=== PATIENT | female | born 1960 | race Caucasian/White ===

== ENCOUNTER 2016-05-22 14:02 | Emergency (ER) | payer OTHER ==
[2015-03-02 11:05] VITALS: BMI 22.3
[~2016-05-22 14:02] MED LIST: BACTRIM DS TABL1 TAB PO; CLEOCIN HCL150 MG PO; CLEOCIN HCL300 MG PO; EPOGEN3000 U/ML SC; HYDROCODONE-APA1 TAB PO; NEUPOGEN300 MCG/ML SC; ONCOLOGY MOUTHWA5 ML PO; OXYCONTIN10 MG PO; VALTREX500 MG PO; ZOFRAN ODT4 MG/UDTAB PO
== END 2016-05-22 18:54 | disposition home or self-care (01) ==
LOC: D.ER 14:02
DX: K04.7 Periapical abscess without sinus (principal); R59.1 Generalized enlarged lymph nodes; R51 Headache; F17.200 Nicotine dependence, unspecified, uncomplicated; C95.90 Leukemia, unspecified not having achieved remission

== ENCOUNTER 2016-06-16 20:21 | Emergency (ER) | payer OTHER ==
[2015-03-02 11:05] VITALS: BMI 22.3
[2016-06-16 23:29] LABS: HEMATOCRIT 33.7 % (36.0-48.0); HEMOGLOBIN 11.4 g/dL (12-16); MCH 31.5 pg (26.0-34.0); MCHC 33.8 g/dL (31.0-37.0); MCV 93.1 fL (80.0-100.0); MEAN PLATELET VOLUME 9.8 fL (7.4-10.4); PLATELET COUNT 153 10x3/uL (130-400); RBC 3.62 10x6/uL (4.00-5.40); RDW 15.2 % (11.5-14.5); WBC 2.3 10x3/uL (4.8-10.8)
[2016-06-16 23:41] LABS: ALKALINE PHOSPHATASE 96 U/L (46-116); ALT (SGPT) 33 U/L (10-68); CALC OSMOLALITY 287 mosm/kg (275-300); CALCIUM 8.9 mg/dL (8.5-10.1); CARBON DIOXIDE 26.2 mmol/L (21.0-32.0); CHLORIDE - SERUM 109 mmol/L (98-107); CREATININE - SERUM 0.8 mg/dL (0.6-1.3); GLUCOSE 104 mg/dL (74-106); POTASSIUM - SERUM 3.9 mmol/L (3.5-5.1); PROTEIN - SERUM 8.3 g/dL (6.4-8.2); SODIUM 143 mmol/L (136-145); UREA NITROGEN 20 mg/dL (7-18); eGFR NON AFRICAN AMERICAN 79 mL/min (90-120)
[2016-06-17 00:04] LABS: EOSINOPHILS 6 % (0-7); LYMPHOCYTES 70 % (15-50); MONOCYTES 6 % (2-11); NEUTROPHILS 14 % (40-80); PLATELET ESTIMATE NORMAL; ROULEAUX 1+
== END 2016-06-17 01:26 | disposition home or self-care (01) ==
LOC: D.ER 20:21
PROVIDERS: Nurse Practitioner Acute Care
DX: L03.313 Cellulitis of chest wall (principal)

== ENCOUNTER 2016-09-28 20:54 | Emergency (ER) | payer OTHER ==
[2015-03-02 11:05] VITALS: BMI 22.3
[2016-09-28 22:18] LABS: APPEARANCE HAZY (CLEAR); BILIRUBIN NEGATIVE (NEGATIVE); COLOR YELLOW (YELLOW); GLUCOSE NEGATIVE (NEGATIVE); KETONE NEGATIVE (NEGATIVE); LEUKOCYTE ESTERASE TRACE (NEGATIVE); NITRITE NEGATIVE (NEGATIVE); PROTEIN NEGATIVE (NEGATIVE); SPECIFIC GRAVITY 1.015 (1.005-1.020); UROBILINOGEN NORMAL (NORMAL)
[2016-09-28 22:25] LABS: UDS - AMPHET NEGATIVE QUAL (NEGATIVE); UDS - BARB NEGATIVE QUAL (NEGATIVE); UDS - BENZO POSITIVE QUAL (NEGATIVE); UDS - COCAINE POSITIVE QUAL (NEGATIVE); UDS - METH NEGATIVE QUAL (NEGATIVE); UDS - OPIATE NEGATIVE QUAL (NEGATIVE); UDS - PCP NEGATIVE QUAL (NEGATIVE); UDS - THC NEGATIVE QUAL (NEGATIVE)
[2016-09-28 22:26] LABS: BACTERIA FEW /hpf (NONE SEEN); EPITHELIAL CELLS 0-5 /hpf (0-5); RED CELLS - URINE 25-50 /hpf (0-5)
[2016-09-28 22:40] LABS: BASOPHILS 0.6 % (0-2); EOSINOPHILS 8.1 % (0-7); HEMATOCRIT 35.2 % (36.0-48.0); HEMOGLOBIN 11.9 g/dL (12-16); IMMATURE GRANULOCYTES 0.3 % (0-5); LYMPHOCYTES 53.6 % (15-50); MCH 32.7 pg (26.0-34.0); MCHC 33.8 g/dL (31.0-37.0); MCV 96.7 fL (80.0-100.0); MEAN PLATELET VOLUME 9.9 fL (7.4-10.4); MONOCYTES 10.3 % (2-11); NEUTROPHILS 27.1 % (40-80); PLATELET COUNT 123 10x3/uL (130-400); RBC 3.64 10x6/uL (4.00-5.40); RDW 13.4 % (11.5-14.5); WBC 3.2 10x3/uL (4.8-10.8)
[2016-09-28 22:53] LABS: ALBUMIN 2.9 g/dL (3.4-5.0); BILIRUBIN - TOTAL 0.13 mg/dL (0.2-1.3); CALCIUM 8.4 mg/dL (8.5-10.1); CARBON DIOXIDE 27.2 mmol/L (21.0-32.0); CREATININE - SERUM 0.9 mg/dL (0.6-1.3); POTASSIUM - SERUM 4.2 mmol/L (3.5-5.1); PROTEIN - SERUM 7.3 g/dL (6.4-8.2)
== END 2016-09-29 00:13 | disposition home or self-care (01) ==
LOC: D.ER 20:54
PROVIDERS: Family Medicine
DX: L02.511 Cutaneous abscess of right hand (principal); N39.0 Urinary tract infection, site not specified; A59.9 Trichomoniasis, unspecified; Z85.6 Personal history of leukemia; R50.9 Fever, unspecified; R53.83 Other fatigue; F17.200 Nicotine dependence, unspecified, uncomplicated

== ENCOUNTER 2016-11-12 01:35 | Emergency (ER) | payer OTHER ==
[2015-03-02 11:05] VITALS: BMI 22.3
[2016-11-12 02:41] LABS: HEMATOCRIT 44.8 % (36.0-48.0); HEMOGLOBIN 15.2 g/dL (12-16); MCH 34.1 pg (26.0-34.0); MCHC 33.9 g/dL (31.0-37.0); MCV 100.4 fL (80.0-100.0); MEAN PLATELET VOLUME 10.3 fL (7.4-10.4); PLATELET COUNT 135 10x3/uL (130-400); RBC 4.46 10x6/uL (4.00-5.40); RDW 14.1 % (11.5-14.5); WBC 3.3 10x3/uL (4.8-10.8)
[2016-11-12 03:12] LABS: EOSINOPHILS 1 % (0-7); LYMPHOCYTES 67 % (15-50); MONOCYTES 1 % (2-11); NEUTROPHILS 28 % (40-80); PLATELET ESTIMATE DECREASED
[2016-11-12 03:32] LABS: ALBUMIN 3.9 g/dL (3.4-5.0); ALKALINE PHOSPHATASE 111 U/L (46-116); ALT (SGPT) 70 U/L (10-68); AMYLASE - SERUM 38 U/L (25-115); BILIRUBIN - TOTAL 0.43 mg/dL (0.2-1.3); CALC OSMOLALITY 281 mosm/kg (275-300); CALCIUM 8.8 mg/dL (8.5-10.1); CARBON DIOXIDE 18.8 mmol/L (21.0-32.0); CHLORIDE - SERUM 104 mmol/L (98-107); CREATININE - SERUM 0.6 mg/dL (0.6-1.3); GLUCOSE 97 mg/dL (74-106); LIPASE 114 U/L (73-393); PROTEIN - SERUM 8.6 g/dL (6.4-8.2); SODIUM 138 mmol/L (136-145); UREA NITROGEN 28 mg/dL (7-18); eGFR NON AFRICAN AMERICAN > 90 mL/min (90-120)
[2016-11-12 03:36] LABS: POTASSIUM - SERUM 4.3 mmol/L (3.5-5.1); TROPONIN-I < 0.017 ng/mL (0.000-0.060)
== END 2016-11-12 10:00 | disposition home or self-care (01) ==
LOC: D.ER 01:35
PROVIDERS: Family Medicine
DX: S20.219A Contusion of unspecified front wall of thorax, initial encounter (principal); X58.XXXA Exposure to other specified factors, initial encounter; Y93.89 Activity, other specified; Y92.89 Other specified places as the place of occurrence of the external cause; F10.10 Alcohol abuse, uncomplicated

== ENCOUNTER 2017-04-13 16:17 | Emergency (ER) | payer OTHER ==
[2015-03-02 11:05] VITALS: BMI 22.3
== END 2017-04-13 18:45 | disposition home or self-care (01) ==
LOC: D.ER 16:17
DX: S80.212A Abrasion, left knee, initial encounter (principal); W19.XXXA Unspecified fall, initial encounter; Y93.89 Activity, other specified; Y92.014 Private driveway to single-family (private) house as the place of occurrence of the external cause; S80.02XA Contusion of left knee, initial encounter; S00.83XA Contusion of other part of head, initial encounter; M79.1 Myalgia

== ENCOUNTER 2017-08-03 11:07 | Inpatient (IN) | payer OTHER ==
[~2017-08-03] VITALS: Ht 147.3 cm; Wt 56.8 kg
[2017-08-03 12:38] LABS: BASOPHILS 0.5 % (0-2); HEMATOCRIT 39.9 % (36.0-48.0); HEMOGLOBIN 13.9 g/dL (12-16); IMMATURE GRANULOCYTES 0.3 % (0-5); MCH 32.6 pg (26.0-34.0); MCHC 34.8 g/dL (31.0-37.0); MCV 93.7 fL (80.0-100.0); MEAN PLATELET VOLUME 10.4 fL (7.4-10.4); MONOCYTES 18.1 % (2-11); NEUTROPHILS 25.1 % (40-80); PLATELET COUNT 151 10x3/uL (130-400); RBC 4.26 10x6/uL (4.00-5.40); RDW 14.6 % (11.5-14.5)
[2017-08-03 12:56] LABS: ALBUMIN 3.8 g/dL (3.4-5.0); ANION GAP 12.7 mmol/L (8-16); BILIRUBIN - TOTAL 0.2 mg/dL (0.2-1.3); CALCIUM 9.1 mg/dL (8.5-10.1); CARBON DIOXIDE 24.1 mmol/L (21.0-32.0); CREATININE - SERUM 0.9 mg/dL (0.6-1.3); POTASSIUM - SERUM 3.8 mmol/L (3.5-5.1); PROTEIN - SERUM 9.1 g/dL (6.4-8.2); URIC ACID 2.1 mg/dL (2.6-7.2)
[2017-08-03 14:04] LABS: UDS - AMPHET NEGATIVE QUAL (NEGATIVE); UDS - BARB NEGATIVE QUAL (NEGATIVE); UDS - BENZO NEGATIVE QUAL (NEGATIVE); UDS - COCAINE POSITIVE QUAL (NEGATIVE); UDS - OPIATE POSITIVE QUAL (NEGATIVE); UDS - PCP NEGATIVE QUAL (NEGATIVE); UDS - THC NEGATIVE QUAL (NEGATIVE)
[2017-08-03 15:13] VITALS: BP 144/88; BMI 26.1
[2017-08-03 16:03] VITALS: BP 142/79
[2017-08-03 21:46] VITALS: BP 152/41
[2017-08-04 00:38] VITALS: BP 125/70
[2017-08-04 04:35] VITALS: BP 123/60
[2017-08-04 06:33] LABS: CALC OSMOLALITY 275 mosm/kg (275-300); CALCIUM 8.3 mg/dL (8.5-10.1); CHLORIDE - SERUM 105 mmol/L (98-107); CREATININE - SERUM 0.8 mg/dL (0.6-1.3); GLUCOSE 138 mg/dL (74-106); POTASSIUM - SERUM 4.1 mmol/L (3.5-5.1); SODIUM 137 mmol/L (136-145); UREA NITROGEN 12 mg/dL (7-18); eGFR NON AFRICAN AMERICAN 78 mL/min (90-120)
[2017-08-04 07:01] LABS: HEMATOCRIT 34.1 % (36.0-48.0); HEMOGLOBIN 11.8 g/dL (12-16); MCH 32.4 pg (26.0-34.0); MCHC 34.6 g/dL (31.0-37.0); MCV 93.7 fL (80.0-100.0); MEAN PLATELET VOLUME 10.4 fL (7.4-10.4); PLATELET COUNT 152 10x3/uL (130-400); RBC 3.64 10x6/uL (4.00-5.40); RDW 14.5 % (11.5-14.5); WBC 3.8 10x3/uL (4.8-10.8)
[2017-08-04 08:07] VITALS: BP 136/68
[2017-08-04 08:35] LABS: BASOPHILS 1 % (0-2); EOSINOPHILS 3 % (0-7); LYMPHOCYTES 47 % (15-50); MONOCYTES 28 % (2-11); NEUTROPHILS 11 % (40-80); PLATELET ESTIMATE NORMAL
[2017-08-04 08:36] LABS: PLATELET MORPHOLOGY GIANT PLTS PRESENT
[2017-08-04 11:40] VITALS: BP 130/64
[2017-08-04 14:43] VITALS: Ht 147.3 cm; Wt 56.8 kg
[2017-08-04 15:38] VITALS: BP 115/62
[2017-08-04 20:00] VITALS: BP 121/96
[2017-08-05] VITALS: BP 127/58
[2017-08-05 05:51] VITALS: BP 128/63
[2017-08-05 07:04] LABS: BASOPHILS 0.7 % (0-2); EOSINOPHILS 1.9 % (0-7); HEMOGLOBIN 11.4 g/dL (12-16); IMMATURE GRANULOCYTES 0.4 % (0-5); LYMPHOCYTES 56.3 % (15-50); MCH 31.6 pg (26.0-34.0); MCHC 33.5 g/dL (31.0-37.0); MCV 94.2 fL (80.0-100.0); MEAN PLATELET VOLUME 9.7 fL (7.4-10.4); MONOCYTES 25.4 % (2-11); NEUTROPHILS 15.3 % (40-80); PLATELET COUNT 114 10x3/uL (130-400); RBC 3.61 10x6/uL (4.00-5.40); RDW 14.4 % (11.5-14.5); WBC 2.7 10x3/uL (4.8-10.8)
[2017-08-05 07:37] LABS: BILIRUBIN - TOTAL 0.26 mg/dL (0.2-1.3); CALCIUM 8.7 mg/dL (8.5-10.1); CARBON DIOXIDE 25.3 mmol/L (21.0-32.0); CREATININE - SERUM 0.9 mg/dL (0.6-1.3); POTASSIUM - SERUM 4.3 mmol/L (3.5-5.1); PROTEIN - SERUM 7.3 g/dL (6.4-8.2)
[2017-08-05 07:38] LABS: ALBUMIN 2.7 g/dL (3.4-5.0)
[2017-08-05 08:30] VITALS: BP 119/54
[2017-08-05 11:31] VITALS: BP 118/54
[2017-08-05 16:29] VITALS: BP 120/60
[2017-08-05 20:00] VITALS: BP 131/66
[2017-08-06 04:00] VITALS: BP 129/60
[2017-08-06 05:24] LABS: BASOPHILS 0.3 % (0-2); EOSINOPHILS 0.3 % (0-7); HEMATOCRIT 32.9 % (36.0-48.0); HEMOGLOBIN 11.2 g/dL (12-16); IMMATURE GRANULOCYTES 0.6 % (0-5); LYMPHOCYTES 33.1 % (15-50); MCH 31.6 pg (26.0-34.0); MCV 92.9 fL (80.0-100.0); MEAN PLATELET VOLUME 10.4 fL (7.4-10.4); MONOCYTES 23.5 % (2-11); NEUTROPHILS 42.2 % (40-80); RBC 3.54 10x6/uL (4.00-5.40); RDW 13.5 % (11.5-14.5)
[2017-08-06 05:26] LABS: PLATELET COUNT 149 10x3/uL (130-400); WBC 3.6 10x3/uL (4.8-10.8)
[2017-08-06 05:45] LABS: ALBUMIN 2.6 g/dL (3.4-5.0); ALKALINE PHOSPHATASE 82 U/L (46-116); ALT (SGPT) 24 U/L (10-68); BILIRUBIN - TOTAL 0.21 mg/dL (0.2-1.3); CALC OSMOLALITY 275 mosm/kg (275-300); CALCIUM 9.2 mg/dL (8.5-10.1); CARBON DIOXIDE 25.4 mmol/L (21.0-32.0); CHLORIDE - SERUM 104 mmol/L (98-107); CREATININE - SERUM 0.8 mg/dL (0.6-1.3); GLUCOSE 137 mg/dL (74-106); POTASSIUM - SERUM 4.2 mmol/L (3.5-5.1); PROTEIN - SERUM 7.5 g/dL (6.4-8.2); SODIUM 137 mmol/L (136-145); UREA NITROGEN 12 mg/dL (7-18); eGFR NON AFRICAN AMERICAN 78 mL/min (90-120)
[2017-08-06 08:56] VITALS: BP 133/51
[2017-08-06 12:51] VITALS: BP 93/51
[2017-08-06 16:27] VITALS: BP 148/62
[2017-08-06 20:49] VITALS: BP 127/61
[2017-08-07 04:39] VITALS: BP 150/75
[2017-08-07 06:20] LABS: BASOPHILS 0.2 % (0-2); EOSINOPHILS 0.4 % (0-7); HEMATOCRIT 33.1 % (36.0-48.0); HEMOGLOBIN 11.1 g/dL (12-16); IMMATURE GRANULOCYTES 1.4 % (0-5); LYMPHOCYTES 36.2 % (15-50); MCH 31.4 pg (26.0-34.0); MCHC 33.5 g/dL (31.0-37.0); MCV 93.8 fL (80.0-100.0); MEAN PLATELET VOLUME 9.6 fL (7.4-10.4); MONOCYTES 15.5 % (2-11); NEUTROPHILS 46.3 % (40-80); PLATELET COUNT 148 10x3/uL (130-400); RBC 3.53 10x6/uL (4.00-5.40); RDW 13.8 % (11.5-14.5)
[2017-08-07 06:26] LABS: WBC 4.8 10x3/uL (4.8-10.8)
[2017-08-07 07:00] LABS: ALBUMIN 2.5 g/dL (3.4-5.0); ALKALINE PHOSPHATASE 84 U/L (46-116); ALT (SGPT) 41 U/L (10-68); BILIRUBIN - TOTAL 0.16 mg/dL (0.2-1.3); CALC OSMOLALITY 280 mosm/kg (275-300); CALCIUM 8.7 mg/dL (8.5-10.1); CARBON DIOXIDE 27.5 mmol/L (21.0-32.0); CHLORIDE - SERUM 105 mmol/L (98-107); CREATININE - SERUM 0.8 mg/dL (0.6-1.3); GLUCOSE 113 mg/dL (74-106); PROTEIN - SERUM 6.9 g/dL (6.4-8.2); SODIUM 140 mmol/L (136-145); UREA NITROGEN 16 mg/dL (7-18); eGFR NON AFRICAN AMERICAN 78 mL/min (90-120)
[2017-08-07 08:11] VITALS: BP 114/53
[2017-08-07 12:15] VITALS: BP 99/49
[2017-08-07 16:18] VITALS: BP 93/41
[2017-08-07 20:47] VITALS: BP 102/54
[2017-08-07 23:51] VITALS: BP 91/49
[2017-08-08 04:23] VITALS: BP 112/64
[2017-08-08 05:27] LABS: BASOPHILS 0.5 % (0-2); EOSINOPHILS 1.9 % (0-7); HEMATOCRIT 32.2 % (36.0-48.0); HEMOGLOBIN 10.7 g/dL (12-16); IMMATURE GRANULOCYTES 0.5 % (0-5); LYMPHOCYTES 56.6 % (15-50); MCH 31.6 pg (26.0-34.0); MCHC 33.2 g/dL (31.0-37.0); MONOCYTES 8.3 % (2-11); NEUTROPHILS 32.2 % (40-80); PLATELET COUNT 138 10x3/uL (130-400); RBC 3.39 10x6/uL (4.00-5.40); WBC 4.1 10x3/uL (4.8-10.8)
[2017-08-08 05:54] LABS: ALBUMIN 2.4 g/dL (3.4-5.0); ANION GAP 12.1 mmol/L (8-16); BILIRUBIN - TOTAL 0.13 mg/dL (0.2-1.3); CALCIUM 8.5 mg/dL (8.5-10.1); CARBON DIOXIDE 26.6 mmol/L (21.0-32.0); CREATININE - SERUM 0.9 mg/dL (0.6-1.3); POTASSIUM - SERUM 3.7 mmol/L (3.5-5.1); PROTEIN - SERUM 6.6 g/dL (6.4-8.2)
[2017-08-08 08:45] VITALS: BP 93/40
[2017-08-08 13:09] VITALS: BP 120/64
[2017-08-08 20:00] VITALS: BP 113/45
[2017-08-09] VITALS: BP 1410/59
[2017-08-09 04:52] VITALS: BP 117/73
[2017-08-09 06:37] LABS: BASOPHILS 0.2 % (0-2); HEMATOCRIT 29.6 % (36.0-48.0); HEMOGLOBIN 9.7 g/dL (12-16); IMMATURE GRANULOCYTES 0.7 % (0-5); LYMPHOCYTES 52.6 % (15-50); MCH 31.2 pg (26.0-34.0); MCHC 32.8 g/dL (31.0-37.0); MCV 95.2 fL (80.0-100.0); MEAN PLATELET VOLUME 9.8 fL (7.4-10.4); MONOCYTES 8.2 % (2-11); NEUTROPHILS 36.3 % (40-80); PLATELET COUNT 158 10x3/uL (130-400); RBC 3.11 10x6/uL (4.00-5.40); RDW 13.9 % (11.5-14.5)
[2017-08-09 07:23] LABS: ALBUMIN 2.4 g/dL (3.4-5.0); BILIRUBIN - TOTAL 0.14 mg/dL (0.2-1.3); CALCIUM 8.3 mg/dL (8.5-10.1); CARBON DIOXIDE 29.1 mmol/L (21.0-32.0); CREATININE - SERUM 0.9 mg/dL (0.6-1.3); POTASSIUM - SERUM 4.1 mmol/L (3.5-5.1); PROTEIN - SERUM 6.3 g/dL (6.4-8.2)
[2017-08-09 08:49] VITALS: BP 100/47
[2017-08-09] MEDS ORDERED: HYDROCODON-ACE1 EAC7 PO (12:24)
[2017-08-09] MEDS ORDERED: VIBRAMYCIN 100100 MG PO (12:25)
[2017-08-09] MEDS ORDERED: NICODERM C1 PATCH .3 TRANSDERM (12:25)
[2017-08-09 14:08] VITALS: BP 112/52
== END 2017-08-09 15:30 | disposition home or self-care (01) | DRG 580 ==
LOC: D.ER 11:07 → D.EDHOLD 13:37 → D.MS 13:37
PROVIDERS: Family Medicine; Podiatrist Foot & Ankle Surgery
PROC: 0J9R0ZZ Drainage of Left Foot Subcutaneous Tissue and Fascia, Open Approach (ICD-10-PCS; 2017-08-05)
PROC: 0HBNXZZ Excision of Left Foot Skin, External Approach (ICD-10-PCS; principal; 2017-08-05 09:30)
PROC: 0JQR0ZZ Repair Left Foot Subcutaneous Tissue and Fascia, Open Approach (ICD-10-PCS; 2017-08-08)
DX: L03.032 Cellulitis of left toe (principal); L02.612 Cutaneous abscess of left foot; J44.0 Chronic obstructive pulmonary disease with (acute) lower respiratory infection; F17.203 Nicotine dependence unspecified, with withdrawal; J20.9 Acute bronchitis, unspecified; F32.9 Major depressive disorder, single episode, unspecified; F41.9 Anxiety disorder, unspecified; E86.0 Dehydration; B95.61 Methicillin susceptible Staphylococcus aureus infection as the cause of diseases classified elsewhere

== ENCOUNTER 2017-08-18 17:08 | Inpatient (IN) | payer OTHER ==
[~2017-08-18] VITALS: Ht 147.3 cm; Wt 90.2 kg
[~2017-08-18 17:08] MED LIST changes: +HYDROCODON-ACE1 EAC7 PO; +NICODERM C1 PATCH .3 TRANSDERM; +VIBRAMYCIN 100100 MG PO
[2017-08-18 18:05] LABS: BASOPHILS 0.6 % (0-2); HEMATOCRIT 42.2 % (36.0-48.0); HEMOGLOBIN 14.1 g/dL (12-16); IMMATURE GRANULOCYTES 0.3 % (0-5); LYMPHOCYTES 44.1 % (15-50); MCH 32.6 pg (26.0-34.0); MCHC 33.4 g/dL (31.0-37.0); MCV 97.7 fL (80.0-100.0); MEAN PLATELET VOLUME 9.9 fL (7.4-10.4); PLATELET COUNT 188 10x3/uL (130-400); RBC 4.32 10x6/uL (4.00-5.40); RDW 14.7 % (11.5-14.5); WBC 3.6 10x3/uL (4.8-10.8)
[2017-08-18 18:27] LABS: ALBUMIN 3.8 g/dL (3.4-5.0); ANION GAP 13.7 mmol/L (8-16); BILIRUBIN - TOTAL 0.33 mg/dL (0.2-1.3); CALCIUM 9.7 mg/dL (8.5-10.1); CREATININE - SERUM 0.9 mg/dL (0.6-1.3); POTASSIUM - SERUM 4.7 mmol/L (3.5-5.1); PROTEIN - SERUM 9.1 g/dL (6.4-8.2)
[2017-08-18 21:30] VITALS: BP 131/67
[2017-08-18 22:57] VITALS: BP 138/71
[2017-08-18 23:26] VITALS: BP 133/54
[2017-08-19] VITALS (11 sets, daily range): BP systolic 102–177; BP diastolic 39–73
[2017-08-20] VITALS: BP 95/56
[2017-08-20 02:04] VITALS: BP 142/73; BMI 26.1
[2017-08-20 04:00] VITALS: BP 124/66
[2017-08-20 06:22] LABS: BASOPHILS 0.9 % (0-2); EOSINOPHILS 3.6 % (0-7); IMMATURE GRANULOCYTES 0.3 % (0-5); LYMPHOCYTES 58.5 % (15-50); MCH 32.2 pg (26.0-34.0); MCHC 33.6 g/dL (31.0-37.0); MEAN PLATELET VOLUME 9.4 fL (7.4-10.4); NEUTROPHILS 27.7 % (40-80); PLATELET COUNT 180 10x3/uL (130-400); RBC 3.48 10x6/uL (4.00-5.40); RDW 14.8 % (11.5-14.5); WBC 3.4 10x3/uL (4.8-10.8)
[2017-08-20 06:25] LABS: HEMATOCRIT 33.3 % (36.0-48.0); HEMOGLOBIN 11.2 g/dL (12-16); MCV 95.7 fL (80.0-100.0)
[2017-08-20 07:16] LABS: ALBUMIN 3.1 g/dL (3.4-5.0); ALKALINE PHOSPHATASE 96 U/L (46-116); ALT (SGPT) 33 U/L (10-68); BILIRUBIN - TOTAL 0.17 mg/dL (0.2-1.3); CALC OSMOLALITY 279 mosm/kg (275-300); CALCIUM 8.6 mg/dL (8.5-10.1); CARBON DIOXIDE 25.2 mmol/L (21.0-32.0); CHLORIDE - SERUM 105 mmol/L (98-107); CREATININE - SERUM 0.8 mg/dL (0.6-1.3); GLUCOSE 98 mg/dL (74-106); POTASSIUM - SERUM 4.8 mmol/L (3.5-5.1); PROTEIN - SERUM 7.2 g/dL (6.4-8.2); SODIUM 138 mmol/L (136-145); eGFR NON AFRICAN AMERICAN 78 mL/min (90-120)
[2017-08-20 07:20] LABS: UREA NITROGEN 25 mg/dL (7-18)
[2017-08-20 09:54] VITALS: BP 124/64
[2017-08-20 11:00] VITALS: BP 123/59
[2017-08-20 12:22] VITALS: BMI 26.1
[2017-08-20 20:00] VITALS: BP 121/63
[2017-08-21] VITALS: BP 114/58
[2017-08-21 04:00] VITALS: BP 117/59
[2017-08-21 09:13] LABS: ALBUMIN 3.1 g/dL (3.4-5.0); BASOPHILS 0.6 % (0-2); BILIRUBIN - TOTAL 0.28 mg/dL (0.2-1.3); CARBON DIOXIDE 27.3 mmol/L (21.0-32.0); EOSINOPHILS 3.1 % (0-7); HEMATOCRIT 33.6 % (36.0-48.0); HEMOGLOBIN 11.1 g/dL (12-16); LYMPHOCYTES 64.2 % (15-50); MCH 31.9 pg (26.0-34.0); MCV 96.6 fL (80.0-100.0); MONOCYTES 9.6 % (2-11); NEUTROPHILS 22.5 % (40-80); PLATELET COUNT 206 10x3/uL (130-400); POTASSIUM - SERUM 4.3 mmol/L (3.5-5.1); PROTEIN - SERUM 7.4 g/dL (6.4-8.2); RBC 3.48 10x6/uL (4.00-5.40); RDW 14.8 % (11.5-14.5); WBC 3.2 10x3/uL (4.8-10.8)
[2017-08-21 09:28] VITALS: BP 121/71
[2017-08-21 12:30] VITALS: BP 120/68
[2017-08-21 16:10] VITALS: BP 132/52
[2017-08-21 20:00] VITALS: BP 151/49
[2017-08-22] VITALS: BP 129/62
[2017-08-22 04:28] LABS: BASOPHILS 1.5 % (0-2); EOSINOPHILS 3.2 % (0-7); HEMATOCRIT 34.7 % (36.0-48.0); HEMOGLOBIN 11.7 g/dL (12-16); LYMPHOCYTES 67.4 % (15-50); MCH 32.4 pg (26.0-34.0); MCHC 33.7 g/dL (31.0-37.0); MCV 96.1 fL (80.0-100.0); MEAN PLATELET VOLUME 9.8 fL (7.4-10.4); MONOCYTES 12.1 % (2-11); NEUTROPHILS 15.8 % (40-80); PLATELET COUNT 184 10x3/uL (130-400); RBC 3.61 10x6/uL (4.00-5.40); RDW 14.4 % (11.5-14.5); WBC 3.4 10x3/uL (4.8-10.8)
[2017-08-22 04:55] VITALS: BP 114/49
[2017-08-22 09:23] VITALS: BP 108/46
[2017-08-22 11:53] VITALS: BP 138/74
[2017-08-22 15:48] VITALS: BP 127/62
[2017-08-22 21:37] VITALS: BP 107/53
[2017-08-23 01:32] VITALS: BP 102/66
[2017-08-23 06:11] VITALS: BP 104/60
[2017-08-23 09:07] VITALS: BP 116/53
[2017-08-23 12:29] VITALS: BP 125/41
[2017-08-23 16:54] VITALS: BP 124/79
[2017-08-23 20:51] VITALS: BP 99/56
[2017-08-24 00:37] VITALS: BP 136/60
[2017-08-24 04:47] LABS: BASOPHILS 2.3 % (0-2); EOSINOPHILS 4.9 % (0-7); HEMATOCRIT 34.4 % (36.0-48.0); HEMOGLOBIN 11.5 g/dL (12-16); IMMATURE GRANULOCYTES 3.9 % (0-5); LYMPHOCYTES 64.3 % (15-50); MCH 32.2 pg (26.0-34.0); MCHC 33.4 g/dL (31.0-37.0); MCV 96.4 fL (80.0-100.0); MEAN PLATELET VOLUME 10.5 fL (7.4-10.4); MONOCYTES 12.5 % (2-11); NEUTROPHILS 12.1 % (40-80); PLATELET COUNT 166 10x3/uL (130-400); RBC 3.57 10x6/uL (4.00-5.40); RDW 14.4 % (11.5-14.5); WBC 4.3 10x3/uL (4.8-10.8)
[2017-08-24 05:12] LABS: ALBUMIN 3.2 g/dL (3.4-5.0); ANION GAP 12.9 mmol/L (8-16); BILIRUBIN - TOTAL 0.27 mg/dL (0.2-1.3); CALCIUM 9.1 mg/dL (8.5-10.1); CARBON DIOXIDE 28.2 mmol/L (21.0-32.0); CREATININE - SERUM 0.9 mg/dL (0.6-1.3); POTASSIUM - SERUM 5.1 mmol/L (3.5-5.1); PROTEIN - SERUM 7.8 g/dL (6.4-8.2)
[2017-08-24 06:06] VITALS: BP 115/61
[2017-08-24 08:48] VITALS: BP 132/70
[2017-08-24 11:58] VITALS: BP 118/53
[2017-08-24 17:09] VITALS: BP 115/52
[2017-08-24 20:30] VITALS: BP 116/84
[2017-08-25 00:30] VITALS: BP 103/56
[2017-08-25 04:30] VITALS: BP 115/58
[2017-08-25 04:55] LABS: BASOPHILS 0.7 % (0-2); EOSINOPHILS 4.4 % (0-7); HEMATOCRIT 32.5 % (36.0-48.0); HEMOGLOBIN 10.7 g/dL (12-16); LYMPHOCYTES 73.2 % (15-50); MCHC 32.9 g/dL (31.0-37.0); MCV 97.3 fL (80.0-100.0); MEAN PLATELET VOLUME 10.4 fL (7.4-10.4); MONOCYTES 12.5 % (2-11); NEUTROPHILS 9.2 % (40-80); PLATELET COUNT 147 10x3/uL (130-400); RBC 3.34 10x6/uL (4.00-5.40); RDW 14.2 % (11.5-14.5)
[2017-08-25 05:06] LABS: WBC 2.7 10x3/uL (4.8-10.8)
[2017-08-25 05:07] LABS: ANION GAP 11.3 mmol/L (8-16); CALCIUM 8.6 mg/dL (8.5-10.1); CARBON DIOXIDE 27.8 mmol/L (21.0-32.0); CREATININE - SERUM 1.1 mg/dL (0.6-1.3)
[2017-08-25 05:28] LABS: POTASSIUM - SERUM 4.1 mmol/L (3.5-5.1)
[2017-08-25 09:39] VITALS: BP 114/42
[2017-08-25 13:30] VITALS: BP 123/63
[2017-08-25 17:09] VITALS: BP 127/71
[2017-08-25 20:00] VITALS: BP 123/64
[2017-08-26] VITALS: BP 147/56
[2017-08-26 04:00] VITALS: BP 117/51
[2017-08-26 08:21] VITALS: BP 122/64
[2017-08-26 09:10] LABS: BASOPHILS 0.3 % (0-2); HEMATOCRIT 33.3 % (36.0-48.0); HEMOGLOBIN 11.3 g/dL (12-16); IMMATURE GRANULOCYTES 0.3 % (0-5); LYMPHOCYTES 68.6 % (15-50); MCH 32.4 pg (26.0-34.0); MCHC 33.9 g/dL (31.0-37.0); MCV 95.4 fL (80.0-100.0); MEAN PLATELET VOLUME 9.7 fL (7.4-10.4); MONOCYTES 11.6 % (2-11); NEUTROPHILS 15.2 % (40-80); PLATELET COUNT 123 10x3/uL (130-400); RBC 3.49 10x6/uL (4.00-5.40); RDW 13.8 % (11.5-14.5)
[2017-08-26 09:27] LABS: ANION GAP 9.3 mmol/L (8-16); BILIRUBIN - TOTAL 0.21 mg/dL (0.2-1.3); CALCIUM 9.2 mg/dL (8.5-10.1); CARBON DIOXIDE 29.9 mmol/L (21.0-32.0); CREATININE - SERUM 1.3 mg/dL (0.6-1.3); POTASSIUM - SERUM 4.2 mmol/L (3.5-5.1); PROTEIN - SERUM 7.5 g/dL (6.4-8.2)
[2017-08-26 11:47] VITALS: BP 119/55
[2017-08-26 16:30] VITALS: BP 108/45
[2017-08-26 20:49] VITALS: BP 127/67
[2017-08-27 00:35] VITALS: BP 119/87
[2017-08-27 05:15] VITALS: BP 103/42
[2017-08-27 05:32] LABS: HEMATOCRIT 32.6 % (36.0-48.0); HEMOGLOBIN 10.9 g/dL (12-16); MCH 31.8 pg (26.0-34.0); MCHC 33.4 g/dL (31.0-37.0); MEAN PLATELET VOLUME 10.2 fL (7.4-10.4); PLATELET COUNT 136 10x3/uL (130-400); RBC 3.43 10x6/uL (4.00-5.40); RDW 14.1 % (11.5-14.5); WBC 2.6 10x3/uL (4.8-10.8)
[2017-08-27 06:05] LABS: ALBUMIN 2.9 g/dL (3.4-5.0); BILIRUBIN - TOTAL 0.09 mg/dL (0.2-1.3); CALCIUM 8.9 mg/dL (8.5-10.1); CARBON DIOXIDE 27.6 mmol/L (21.0-32.0); CREATININE - SERUM 0.9 mg/dL (0.6-1.3); POTASSIUM - SERUM 4.6 mmol/L (3.5-5.1); VANCOMYCIN - RANDOM 8.6 ug/mL (10.0-20.0); VANCOMYCIN - TROUGH 8.6 ug/mL (10.0-20.0)
[2017-08-27 07:54] LABS: EOSINOPHILS 1 % (0-7); LYMPHOCYTES 43 % (15-50); MONOCYTES 4 % (2-11); NEUTROPHILS 23 % (40-80); PLATELET ESTIMATE NORMAL
[2017-08-27 11:14] VITALS: BP 126/63
[2017-08-27 18:28] VITALS: Ht 147.3 cm; Wt 90.2 kg
[2017-08-27 18:46] LABS: UDS - AMPHET NEGATIVE QUAL (NEGATIVE); UDS - BARB NEGATIVE QUAL (NEGATIVE); UDS - BENZO NEGATIVE QUAL (NEGATIVE); UDS - COCAINE NEGATIVE QUAL (NEGATIVE); UDS - OPIATE POSITIVE QUAL (NEGATIVE); UDS - PCP NEGATIVE QUAL (NEGATIVE); UDS - THC NEGATIVE QUAL (NEGATIVE)
[2017-08-27 18:49] LABS: APPEARANCE CLEAR (CLEAR); BACTERIA MODERATE /hpf (NONE SEEN); BILIRUBIN NEGATIVE (NEGATIVE); COLOR YELLOW (YELLOW); EPITHELIAL CELLS 0-5 /hpf (0-5); GLUCOSE NEGATIVE (NEGATIVE); KETONE NEGATIVE (NEGATIVE); NITRITE NEGATIVE (NEGATIVE); PROTEIN NEGATIVE (NEGATIVE); RED CELLS - URINE 0-5 /hpf (0-5); UROBILINOGEN NORMAL (NORMAL)
[2017-08-27 20:21] VITALS: BP 144/48
[2017-08-28 00:31] VITALS: BP 100/40
[2017-08-28 04:37] VITALS: BP 130/68
[2017-08-28 07:52] VITALS: BP 120/72
[2017-08-28] MEDS ORDERED: NORCO-5 PO (08:18)
[2017-08-28] MEDS ORDERED: COLACE100 MG PO (08:18)
[2017-08-28] MEDS ORDERED: MELATONIN 3 MG1 TAB PO (08:19)
[2017-08-28] MEDS ORDERED: BACTRIM DS TABL1 TAB PO (08:21)
[2017-08-28] MEDS ORDERED: LEVAQUIN750 MG PO (08:21)
== END 2017-08-28 11:30 | disposition home or self-care (01) | DRG 857 ==
LOC: D.ER 17:08 → D.EDHOLD 21:51 → D.M2 21:51
PROVIDERS: Family Medicine; Podiatrist Foot & Ankle Surgery
PROC: 05HC33Z Insertion of Infusion Device into Left Basilic Vein, Percutaneous Approach (ICD-10-PCS; principal; 2017-08-20)
PROC: B54NZZA Ultrasonography of Left Upper Extremity Veins, Guidance (ICD-10-PCS; 2017-08-20)
PROC: 0HBNXZZ Excision of Left Foot Skin, External Approach (ICD-10-PCS; 2017-08-22)
PROC: 0Y6Y0Z0 Detachment at Left 5th Toe, Complete, Open Approach (ICD-10-PCS; 2017-08-22 09:30)
DX: T81.4XXA Infection following a procedure, initial encounter (principal); L03.116 Cellulitis of left lower limb; M86.172 Other acute osteomyelitis, left ankle and foot; D61.818 Other pancytopenia; B96.5 Pseudomonas (aeruginosa) (mallei) (pseudomallei) as the cause of diseases classified elsewhere; Z16.39 Resistance to other specified antimicrobial drug; K59.00 Constipation, unspecified; L97.521 Non-pressure chronic ulcer of other part of left foot limited to breakdown of skin; L27.0 Generalized skin eruption due to drugs and medicaments taken internally; T36.95XA Adverse effect of unspecified systemic antibiotic, initial encounter; Y92.230 Patient room in hospital as the place of occurrence of the external cause; Z85.6 Personal history of leukemia; Z72.0 Tobacco use; J44.9 Chronic obstructive pulmonary disease, unspecified; Z91.19 Patient's noncompliance with other medical treatment and regimen

== ENCOUNTER 2017-12-06 10:57 | Inpatient (IN) | payer OTHER ==
[~2017-12-06] VITALS: Ht 147.3 cm; Wt 71.1 kg
--- NOTE | ~2017-12-06 | MORECARE ---
CASE MANAGEMENT DISCHARGE SUMMARY PATIENT: NICKIE FRANCIS UNIT: [id number] ADM DATE: 12/07/17 AGE: 57 : 62 SEX: F ROOM/BED: D.1210 AUTHOR: ANTONIETTA,DOC PHYSICIAN: REFERRING PHYSICIAN: AKASH AQUINO MD DATE OF SERVICE: 12/08/17 Discharge Plan Patient Name: NICKIE FRANCIS Facility: [facility]:[place] : 1960 Planned Disposition: Home Anticipated Discharge Date: Discharge Date: Expected LOS: Initial Reviewer: [email or web address] Initial Review Date: 12/08/2017 Generated: 12/08/17 3:30 pm Comments DCP- Discharge Planning Updated by [email or web address]: Suzi Rendon on 12/08/17 1:[address] Patient Name: NICKIE FRANCIS Admission Status: ER Accout number: [id number] Admission Date: 12-07-2017 : 1960 Admission Diagnosis: Attending: AKASH AQUINO Current LOS: 1 Anticipated DC Date: Planned Disposition: Home Primary Insurance: [employer] MANAGED MEDICAID Discharge Planning Comments: CM met with patient at bedside. Patient is currently in neutropenia precautions due to low WBC. Patient states she plans on returning to her home. She states that she does have a roommate but they don't assist with her care. Patient states that she doesn't have a PCP. Patient may need walk test if she continues to need oxygen upon discharge. Patient denies any discharge needs at this time. CM will continue to follow and assist as needed with discharge planning / needs. Nurse Clinician: Suzi Rendon DCPIA - Discharge Planning Initial Assessment Updated by [email or web address]: Suzi Rendon on 12/08/17 2:23 pm * Is the patient Alert and Oriented? Yes * How many steps to enter\exit or inside your home? * PCP no PCP * Pharmacy [facility] on [address] * Preadmission Environment Home Alone * ADLs Independent * Equipment None * List name and contact numbers for known caregivers / representatives who currently or will assist patient after discharge: Shauna Jorge [phone] * Verbal permission to speak to the caregivers and representatives has been obtained from the patient. N/A * Community resources currently utilized None * Additional services required to return to the preadmission environment? No * Can the patient safely return to the preadmission environment? Yes * Has this patient been hospitalized within the prior 30 days at any hospital? No Patient Name: NICKIE FRANCIS Page [phone] at 1430 All edits/amendments must be made on the electronic document DICTATION DATE: 12/08/171429 ACETYLENE TORCH OPERATOR: TARAH 12/08/171429 RPT#: [id number] DC DATE: STATUS: ADM IN [facility] [address] [place] [address] END OF REPORT
--- NOTE | ~2017-12-06 | MORECARE ---
CASE MANAGEMENT DISCHARGE SUMMARY PATIENT: NICKIE FRANCIS UNIT: [id number] ADM DATE: 12/07/17 AGE: 57 : 62 SEX: F ROOM/BED: D.1210 AUTHOR: ANTONIETTADOC PHYSICIAN: REFERRING PHYSICIAN: AKASH AQUINO MD DATE OF SERVICE: 12/12/17 Discharge Plan Patient Name: NICKIE FRANCIS Facility: [facility]:[place] : 1960 Planned Disposition: Home Anticipated Discharge Date: Discharge Date: 12/12/2017 Expected LOS: Initial Reviewer: [email or web address] Initial Review Date: 12/08/2017 Generated: 12/12/17 4:30 pm Comments DCP- Discharge Planning Updated by [email or web address]: Suzi Rendon on 12/08/17 1:[address] Patient Name: NICKIE FRANCIS Admission Status: ER Accout number: [id number] Admission Date: 12-07-2017 : 1960 Admission Diagnosis: Attending: AKASH AQUINO Current LOS: 1 Anticipated DC Date: Planned Disposition: Home Primary Insurance: [employer] MANAGED MEDICAID Discharge Planning Comments: CM met with patient at bedside. Patient is currently in neutropenia precautions due to low WBC. Patient states she plans on returning to her home. She states that she does have a roommate but they don't assist with her care. Patient states that she doesn't have a PCP. Patient may need walk test if she continues to need oxygen upon discharge. Patient denies any discharge needs at this time. CM will continue to follow and assist as needed with discharge planning / needs. Surgical Training Specialist: Suzi Rendon DCPIA - Discharge Planning Initial Assessment Updated by [email or web address]: Suzi Rendon on 12/08/17 2:23 pm * Is the patient Alert and Oriented? Yes * How many steps to enter\exit or inside your home? * PCP no PCP * Pharmacy [facility] on [address] * Preadmission Environment Home Alone * ADLs Independent * Equipment None * List name and contact numbers for known caregivers / representatives who currently or will assist patient after discharge: Shauna Jorge [phone] * Verbal permission to speak to the caregivers and representatives has been obtained from the patient. N/A * Community resources currently utilized None * Additional services required to return to the preadmission environment? No * Can the patient safely return to the preadmission environment? Yes * Has this patient been hospitalized within the prior 30 days at any hospital? No Last DP export: 12/08/17 1:30 Patient Name: NICKIE FRANCIS Page [phone] at 1530 All edits/amendments must be made on the electronic document DICTATION DATE: 12/12/17 1530 BUSHEL WORKER: TARAH 12/12/17 1530 RPT#: [id number] DC DATE:12/12/17 STATUS: DIS IN [facility] [address] [place] [address] END OF REPORT
[~2017-12-06 10:57] MED LIST changes: +COLACE100 MG PO; +LEVAQUIN750 MG PO; +MELATONIN 3 MG1 TAB PO; +NORCO-5 PO
[2017-12-06 12:00] VITALS: BP 142/82
[2017-12-06 12:20] LABS: ALBUMIN 3.4 g/dL (3.4-5.0); ALKALINE PHOSPHATASE 91 U/L (46-116); ALT (SGPT) 26 U/L (10-68); BILIRUBIN - TOTAL 0.38 mg/dL (0.2-1.3); CALC OSMOLALITY 284 mosm/kg (275-300); CALCIUM 8.6 mg/dL (8.5-10.1); CARBON DIOXIDE 22.4 mmol/L (21.0-32.0); CHLORIDE - SERUM 106 mmol/L (98-107); CREATININE - SERUM 0.8 mg/dL (0.6-1.3); GLUCOSE 126 mg/dL (74-106); POTASSIUM - SERUM 3.6 mmol/L (3.5-5.1); PROTEIN - SERUM 7.5 g/dL (6.4-8.2); SODIUM 141 mmol/L (136-145); UREA NITROGEN 17 mg/dL (7-18); eGFR NON AFRICAN AMERICAN 78 mL/min (90-120)
[2017-12-06 12:27] LABS: HEMATOCRIT 36.4 % (36.0-48.0); HEMOGLOBIN 12.5 g/dL (12-16); MCH 31.7 pg (26.0-34.0); MCHC 34.3 g/dL (31.0-37.0); MCV 92.4 fL (80.0-100.0); MEAN PLATELET VOLUME 9.8 fL (7.4-10.4); PLATELET COUNT 123 10x3/uL (130-400); RBC 3.94 10x6/uL (4.00-5.40); RDW 14.2 % (11.5-14.5)
[2017-12-06 12:33] LABS: CKMB 0.9 U/L (0.0-3.6); CREATINE KINASE 105 UL (21-215)
[2017-12-06 12:34] LABS: TROPONIN-I < 0.017 ng/mL (0.000-0.060)
[2017-12-06 13:01] LABS: BASOPHILS 2 % (0-2); EOSINOPHILS 8 % (0-7); LYMPHOCYTES 64 % (15-50); MONOCYTES 10 % (2-11); NEUTROPHILS 10 % (40-80); PLATELET ESTIMATE DECREASED
[2017-12-06 13:20] VITALS: BP 163/87
[2017-12-06 15:08] VITALS: BP 170/77
[2017-12-06 16:36] VITALS: BP 126/51; BMI 26.1
[2017-12-06 19:25] VITALS: BP 121/49
[2017-12-07 00:07] VITALS: BP 118/67
[2017-12-07 04:24] VITALS: BP 115/48
[2017-12-07 07:13] VITALS: BP 116/60
[2017-12-07 07:32] LABS: BASOPHILS 0.8 % (0-2); EOSINOPHILS 0.8 % (0-7); HEMATOCRIT 32.8 % (36.0-48.0); LYMPHOCYTES 41.7 % (15-50); MCH 31.2 pg (26.0-34.0); MCHC 33.5 g/dL (31.0-37.0); MCV 92.9 fL (80.0-100.0); MEAN PLATELET VOLUME 10.2 fL (7.4-10.4); MONOCYTES 35.8 % (2-11); NEUTROPHILS 20.9 % (40-80); PLATELET COUNT 133 10x3/uL (130-400); RBC 3.53 10x6/uL (4.00-5.40); RDW 14.7 % (11.5-14.5)
[2017-12-07 07:34] LABS: WBC 1.2 10x3/uL (4.8-10.8)
[2017-12-07 07:47] LABS: ANION GAP 13.6 mmol/L (8-16); CALCIUM 9.2 mg/dL (8.5-10.1); CARBON DIOXIDE 23.6 mmol/L (21.0-32.0); CREATININE - SERUM 0.9 mg/dL (0.6-1.3)
[2017-12-07 07:54] LABS: POTASSIUM - SERUM 4.2 mmol/L (3.5-5.1)
[2017-12-07 09:22] LABS: APPEARANCE HAZY (CLEAR); BILIRUBIN NEGATIVE (NEGATIVE); COLOR YELLOW (YELLOW); EPITHELIAL CELLS OCC /hpf (0-5); GLUCOSE 1000 mg/dL (NEGATIVE); KETONE NEGATIVE (NEGATIVE); NITRITE NEGATIVE (NEGATIVE); PROTEIN NEGATIVE (NEGATIVE); RED CELLS - URINE NONE SEEN /hpf (0-5); UROBILINOGEN NORMAL (NORMAL); WHITE CELLS - URINE NSEEN /hpf (0-5)
[2017-12-07 09:35] LABS: UDS - AMPHET NEGATIVE QUAL (NEGATIVE); UDS - BARB NEGATIVE QUAL (NEGATIVE); UDS - BENZO NEGATIVE QUAL (NEGATIVE); UDS - COCAINE POSITIVE QUAL (NEGATIVE); UDS - OPIATE POSITIVE QUAL (NEGATIVE); UDS - PCP NEGATIVE QUAL (NEGATIVE); UDS - THC NEGATIVE QUAL (NEGATIVE)
[2017-12-07 11:44] VITALS: BP 106/45
[2017-12-07 16:36] VITALS: BP 102/51
[2017-12-07 19:47] VITALS: BP 112/50
[2017-12-08] VITALS: BP 98/40
[2017-12-08 04:00] VITALS: BP 111/50
[2017-12-08 06:17] LABS: BASOPHILS 0 % (0-2); EOSINOPHILS 0 % (0-7); HEMATOCRIT 29.9 % (36.0-48.0); HEMOGLOBIN 10.1 g/dL (12-16); IMMATURE GRANULOCYTES 0.8 % (0-5); LYMPHOCYTES 38.7 % (15-50); MCH 31.4 pg (26.0-34.0); MCHC 33.8 g/dL (31.0-37.0); MCV 92.9 fL (80.0-100.0); MEAN PLATELET VOLUME 10.1 fL (7.4-10.4); MONOCYTES 37.8 % (2-11); NEUTROPHILS 22.7 % (40-80); RBC 3.22 10x6/uL (4.00-5.40); RDW 14.2 % (11.5-14.5)
[2017-12-08 06:21] LABS: WBC 1.2 10x3/uL (4.8-10.8)
[2017-12-08 06:22] LABS: PLATELET COUNT 106 10x3/uL (130-400)
[2017-12-08 06:54] LABS: CALC OSMOLALITY 294 mosm/kg (275-300); CALCIUM 8.7 mg/dL (8.5-10.1); CHLORIDE - SERUM 109 mmol/L (98-107); CREATININE - SERUM 0.8 mg/dL (0.6-1.3); GLUCOSE 260 mg/dL (74-106); SODIUM 143 mmol/L (136-145); UREA NITROGEN 16 mg/dL (7-18); eGFR NON AFRICAN AMERICAN 78 mL/min (90-120)
[2017-12-08 06:59] LABS: POTASSIUM - SERUM 3.4 mmol/L (3.5-5.1)
[2017-12-08 07:33] VITALS: BP 116/47
[2017-12-08 11:18] VITALS: BP 120/58
[2017-12-08 12:26] VITALS: BMI 26.1
[2017-12-08 14:27] LABS: % SATURATION 14 % (15-55); IRON 35 ug/dl (35-150); TOTAL IRON BIND CAPACITY 239 ug/dl (260-445); UNSAT IRON BIND CAPACITY 204 ug/dl (150-375)
[2017-12-08 18:25] VITALS: BP 122/68
[2017-12-08 19:53] VITALS: BP 117/58
[2017-12-08 21:26] VITALS: Ht 147.3 cm; Wt 71.1 kg
[2017-12-09] VITALS (12 sets, daily range): BP systolic 111–120; BP diastolic 52–84
[2017-12-09 06:02] LABS: BASOPHILS 0 % (0-2); EOSINOPHILS 0 % (0-7); HEMATOCRIT 30.7 % (36.0-48.0); HEMOGLOBIN 10.2 g/dL (12-16); IMMATURE GRANULOCYTES 0.5 % (0-5); LYMPHOCYTES 29.1 % (15-50); MCH 31.1 pg (26.0-34.0); MCHC 33.2 g/dL (31.0-37.0); MCV 93.6 fL (80.0-100.0); MEAN PLATELET VOLUME 10.2 fL (7.4-10.4); MONOCYTES 22.6 % (2-11); NEUTROPHILS 47.8 % (40-80); RBC 3.28 10x6/uL (4.00-5.40); RDW 14.4 % (11.5-14.5)
[2017-12-09 06:10] LABS: ANION GAP 12.3 mmol/L (8-16); CALCIUM 8.9 mg/dL (8.5-10.1); CARBON DIOXIDE 27.1 mmol/L (21.0-32.0); CREATININE - SERUM 0.9 mg/dL (0.6-1.3); PHOSPHOROUS 3.6 mg/dL (2.5-4.9); PLATELET COUNT 136 10x3/uL (130-400); POTASSIUM - SERUM 4.4 mmol/L (3.5-5.1)
[2017-12-09 07:00] LABS: APTT 41.4 SECONDS (22.8-39.4); INR 0.97 (0.85-1.17); PROTIME 12.5 SECONDS (11.6-15.0)
[2017-12-09 08:18] LABS: FOLATE (FOLIC ACID) - SERUM 4.5 ng/mL (>3.0)
[2017-12-10] VITALS (7 sets, daily range): BP systolic 108–148; BP diastolic 47–73
[2017-12-10 07:04] LABS: BASOPHILS 0.3 % (0-2); EOSINOPHILS 0 % (0-7); HEMATOCRIT 31.2 % (36.0-48.0); HEMOGLOBIN 10.4 g/dL (12-16); IMMATURE GRANULOCYTES 2.8 % (0-5); LYMPHOCYTES 23.1 % (15-50); MCHC 33.3 g/dL (31.0-37.0); MCV 92.9 fL (80.0-100.0); MEAN PLATELET VOLUME 9.5 fL (7.4-10.4); MONOCYTES 12.2 % (2-11); NEUTROPHILS 61.6 % (40-80); PLATELET COUNT 117 10x3/uL (130-400); RBC 3.36 10x6/uL (4.00-5.40); RDW 13.9 % (11.5-14.5)
[2017-12-10 07:14] LABS: WBC 2.9 10x3/uL (4.8-10.8)
[2017-12-10 07:24] LABS: CALC OSMOLALITY 283 mosm/kg (275-300); CALCIUM 8.7 mg/dL (8.5-10.1); CARBON DIOXIDE 28.9 mmol/L (21.0-32.0); CHLORIDE - SERUM 103 mmol/L (98-107); CREATININE - SERUM 0.8 mg/dL (0.6-1.3); GLUCOSE 197 mg/dL (74-106); SODIUM 138 mmol/L (136-145); eGFR NON AFRICAN AMERICAN 78 mL/min (90-120)
[2017-12-10 07:26] LABS: UREA NITROGEN 20 mg/dL (7-18)
[2017-12-11 04:51] VITALS: BP 135/60
[2017-12-11 06:58] LABS: BASOPHILS 0.2 % (0-2); EOSINOPHILS 0 % (0-7); HEMATOCRIT 34.3 % (36.0-48.0); HEMOGLOBIN 11.5 g/dL (12-16); IMMATURE GRANULOCYTES 4.7 % (0-5); LYMPHOCYTES 17.9 % (15-50); MCH 31.1 pg (26.0-34.0); MCHC 33.5 g/dL (31.0-37.0); MCV 92.7 fL (80.0-100.0); MEAN PLATELET VOLUME 10.1 fL (7.4-10.4); MONOCYTES 7.3 % (2-11); NEUTROPHILS 69.9 % (40-80); RDW 13.5 % (11.5-14.5)
[2017-12-11 07:04] LABS: PLATELET COUNT 158 10x3/uL (130-400); WBC 5.8 10x3/uL (4.8-10.8)
[2017-12-11 07:06] LABS: CALC OSMOLALITY 284 mosm/kg (275-300); CARBON DIOXIDE 27.4 mmol/L (21.0-32.0); CHLORIDE - SERUM 103 mmol/L (98-107); CREATININE - SERUM 0.8 mg/dL (0.6-1.3); GLUCOSE 168 mg/dL (74-106); POTASSIUM - SERUM 4.1 mmol/L (3.5-5.1); SODIUM 139 mmol/L (136-145); UREA NITROGEN 22 mg/dL (7-18); eGFR NON AFRICAN AMERICAN 78 mL/min (90-120)
[2017-12-11 07:49] VITALS: BP 145/74
[2017-12-11 08:00] VITALS: BP 128/61
[2017-12-11 12:43] VITALS: BP 135/61
[2017-12-11 16:09] VITALS: BP 102/56
[2017-12-12 01:44] VITALS: BP 107/56
[2017-12-12 06:22] LABS: BASOPHILS 0.6 % (0-2); EOSINOPHILS 0 % (0-7); HEMATOCRIT 35.2 % (36.0-48.0); HEMOGLOBIN 11.7 g/dL (12-16); IMMATURE GRANULOCYTES 5.1 % (0-5); LYMPHOCYTES 13.5 % (15-50); MCH 31.3 pg (26.0-34.0); MCHC 33.2 g/dL (31.0-37.0); MCV 94.1 fL (80.0-100.0); MEAN PLATELET VOLUME 10.7 fL (7.4-10.4); MONOCYTES 6.5 % (2-11); NEUTROPHILS 74.3 % (40-80); PLATELET COUNT 149 10x3/uL (130-400); RBC 3.74 10x6/uL (4.00-5.40); RDW 13.5 % (11.5-14.5); WBC 5.3 10x3/uL (4.8-10.8)
[2017-12-12 06:37] LABS: ANION GAP 10.4 mmol/L (8-16); CALCIUM 8.6 mg/dL (8.5-10.1); CARBON DIOXIDE 28.2 mmol/L (21.0-32.0); CREATININE - SERUM 0.9 mg/dL (0.6-1.3); POTASSIUM - SERUM 4.6 mmol/L (3.5-5.1)
[2017-12-12 08:04] VITALS: BP 122/56
[2017-12-12 12:03] VITALS: BP 122/61
[2017-12-12 14:22] LABS: IMMUNOGLOBULIN E 104 IU/mL (0-100)
== END 2017-12-12 13:30 | disposition left against medical advice (07) | DRG 190 ==
LOC: D.ER 10:57 → OBSVTIME 14:41 → D.EDHOLD 14:41 → D.M3 15:25
PROVIDERS: Family Medicine; Internal Medicine Nephrology; Internal Medicine Pulmonary Disease; Radiology Diagnostic Radiology
PROC: 07DR3ZX Extraction of Iliac Bone Marrow, Percutaneous Approach, Diagnostic (ICD-10-PCS; principal; 2017-12-09 08:55)
DX: J44.0 Chronic obstructive pulmonary disease with (acute) lower respiratory infection (principal); J18.9 Pneumonia, unspecified organism; J45.901 Unspecified asthma with (acute) exacerbation; D61.818 Other pancytopenia; C95.90 Leukemia, unspecified not having achieved remission; F17.213 Nicotine dependence, cigarettes, with withdrawal; J44.1 Chronic obstructive pulmonary disease with (acute) exacerbation; J20.9 Acute bronchitis, unspecified; D46.9 Myelodysplastic syndrome, unspecified; F10.10 Alcohol abuse, uncomplicated; F14.10 Cocaine abuse, uncomplicated; F32.9 Major depressive disorder, single episode, unspecified; F41.9 Anxiety disorder, unspecified; E87.6 Hypokalemia

== ENCOUNTER 2019-05-01 19:54 | Inpatient (IN) | payer MEDICAID ==
[~2019-05-01] VITALS: Ht 147.3 cm; Wt 56.7 kg
--- NOTE | ~2019-05-01 | OP ---
PATIENT NAME: NICKIE FRANCIS MEDICAL RECORD: [id number] :[birth year] LOCATION:D.MS [facility] ADMISSION DATE:05/01/19 SURGEON: EDDIE HANSEN MD DATE OF OPERATION: 05/03/2019 PREOPERATIVE DIAGNOSES: 1. Bilateral abdominal wounds. 2. Drug dependence. 3. Myelodysplastic syndrome. 4. Chronic obstructive pulmonary disease. POSTOPERATIVE DIAGNOSES: 1. Bilateral abdominal wounds. 2. Drug dependence. 3. Myelodysplastic syndrome. 4. Chronic obstructive pulmonary disease. PROCEDURE: Excisional debridement of bilateral abdominal wound. SURGEON: Eddie Hansen MD REPORT OF PROCEDURE: The patient's abdomen was prepped and draped in sterile fashion. The patient had a large ulcerated wound on the right abdomen laterally. This had some necrotic tissue present within it and this necrotic tissue was excised down to what appeared to be normal appearing fatty tissue. This excision went all the way down to the fascia, but not through it. The total size of this necrotic area was 5 cm x 4 cm x 2-1/2 cm deep. Any bleeding that was found from the area was treated with electrocautery. We then irrigated out the wound with peroxide and saline solution. We then approached the patient's left abdomen. The patient had a smaller opening present, but there was purulent drainage within it. This wound was opened up and cultures were taken times 3. The necrotic tissue on the surface of the wound was excised leaving a 1.8 x 1.5 cm opening, that was about 1.5 cm deep. The wound was irrigated out with hydrogen peroxide and saline solution. We then packed both of these wounds with peroxide-soaked Kerlix and dressed these with dry 4 x 4s. COMPLICATIONS: None. CONDITION: Stable. ANESTHESIA: General endotracheal. BLOOD LOSS: 50 mL. TRANSINT:[id number] Voice Confirmation ID: [id number] DOCUMENT ID: [id number] EDDIE HANSEN MD CC: [id number] DICTATION DATE: 05/03/19 1025 PANAMA HAT SMEARER: 05/03/19 1106 ADM IN [place] [place] [address] [place] [address]
--- NOTE | 2019-05-01 20:26 | NUR ---
WOUND CULTURE TO RIGHT ABD OBTAINED.
--- NOTE | 2019-05-01 20:30 | NUR ---
According to the suicide assessment the patient rates low for 1:1 observation. Will provide a suicide resource flyer.
[2019-05-01 20:32] LABS: BASOPHILS 0.2 % (0-2); EOSINOPHILS 1.7 % (0-7); HEMATOCRIT 41.6 % (36.0-48.0); HEMOGLOBIN 13.7 g/dL (12-16); IMMATURE GRANULOCYTES 0.8 % (0-5); LYMPHOCYTES 39.5 % (15-50); MCH 32.5 pg (26.0-34.0); MCHC 32.9 g/dL (31.0-37.0); MCV 98.6 fL (80.0-100.0); MEAN PLATELET VOLUME 9.2 fL (7.4-10.4); MONOCYTES 7.3 % (2-11); NEUTROPHILS 50.5 % (40-80); PLATELET COUNT 173 10x3/uL (130-400); RBC 4.22 10x6/uL (4.00-5.40); RDW 13.4 % (11.5-14.5); WBC 4.8 10x3/uL (4.8-10.8)
[2019-05-01 20:47] LABS: ALBUMIN 2.9 g/dL (3.4-5.0); ANION GAP 14.4 mmol/L (8-16); BILIRUBIN - TOTAL 0.11 mg/dL (0.2-1.3); CALCIUM 8.5 mg/dL (8.5-10.1); CREATININE - SERUM 0.9 mg/dL (0.6-1.3); MAGNESIUM - SERUM 2.1 mg/dL (1.8-2.4); POTASSIUM - SERUM 4.4 mmol/L (3.5-5.1); PROTEIN - SERUM 6.8 g/dL (6.4-8.2)
--- NOTE | 2019-05-01 21:27 | NUR ---
back from ct- up to bathroom. urine to lab.
[2019-05-01 21:45] LABS: BILIRUBIN NEGATIVE (NEGATIVE); GLUCOSE NEGATIVE (NEGATIVE); KETONE NEGATIVE (NEGATIVE); NITRITE POSITIVE (NEGATIVE); UROBILINOGEN NORMAL (NORMAL)
[2019-05-01 21:53] LABS: UDS - AMPHET NEGATIVE QUAL (NEGATIVE); UDS - BARB NEGATIVE QUAL (NEGATIVE); UDS - BENZO POSITIVE QUAL (NEGATIVE); UDS - COCAINE POSITIVE QUAL (NEGATIVE); UDS - OPIATE POSITIVE QUAL (NEGATIVE); UDS - PCP NEGATIVE QUAL (NEGATIVE); UDS - THC NEGATIVE QUAL (NEGATIVE)
--- NOTE | 2019-05-01 22:18 | NUR ---
SNACK BOX AND WATER TO PATIENT. IV SITE STILL LOOKS PATENT. PT DENIES PAIN AT SITE.
--- NOTE | 2019-05-01 22:56 | NUR ---
RECEIVED FROM ER VIA [facility]. ALERT.ORIENTED. NO COMPLATINTS AT PRESENT. IV TO RFA INTACT WITHOUT REDNESS OR EDEMA NOTED. ABSCESS TO RIGHT AND LEFT ABD WITH DRESSING INTACT. PURELENT DRAINAGE NOTED. ORIENTED TO ROOM. CL IN REACH.
[2019-05-01 23:17] VITALS: BP 118/51; BMI 26.1
--- NOTE | 2019-05-01 23:18 | NUR ---
PATIENT HAD SUICIDE RISK ASSESSMENT DONE IN ER.
[2019-05-02 03:49] VITALS: BP 130/67
--- NOTE | 2019-05-02 07:29 | NUR ---
ALERT AND ORIENTED X 4. ABDOMINAL DRESSINGS INTACT TO LEFT AND RIGHT ANTERIOR FLANK WITH BOWEL SOUNDS NOTED X4 WITH GENERALIZED TENDERNESS TO AFFECTED AREAS. PAIN MANAGED WITH MORPHINE IV FOR PAIN MANAGEMENT. DENIES ANY PAIN AT THIS TIME. LUNGS CTA AND HRRR. NO PERIPHERAL EDEMA NOTED WITH PATINET UP ADLIB. CONTINUES NPO STATUS PENDING POTENTIAL SURGERY WITH PATINE VERBALIZING UNDERSTANDING. ENCOURAGED TO USE CALL LIGHT FOR ASSSIT.
[2019-05-02 08:01] LABS: CALC OSMOLALITY 287 mosm/kg (275-300); CALCIUM 8.8 mg/dL (8.5-10.1); CARBON DIOXIDE 23.9 mmol/L (21.0-32.0); CHLORIDE - SERUM 107 mmol/L (98-107); CREATININE - SERUM 0.7 mg/dL (0.6-1.3); GLUCOSE 119 mg/dL (74-106); MAGNESIUM - SERUM 2.3 mg/dL (1.8-2.4); PHOSPHOROUS 4.4 mg/dL (2.5-4.9); POTASSIUM - SERUM 4.7 mmol/L (3.5-5.1); SODIUM 142 mmol/L (136-145); UREA NITROGEN 24 mg/dL (7-18); eGFR NON AFRICAN AMERICAN > 90 mL/min (90-120)
[2019-05-02 08:35] LABS: BASOPHILS 0.4 % (0-2); EOSINOPHILS 1.7 % (0-7); HEMATOCRIT 40.5 % (36.0-48.0); HEMOGLOBIN 13.2 g/dL (12-16); LYMPHOCYTES 44.9 % (15-50); MCHC 32.6 g/dL (31.0-37.0); MEAN PLATELET VOLUME 9.2 fL (7.4-10.4); MONOCYTES 9.4 % (2-11); NEUTROPHILS 42.6 % (40-80); PLATELET COUNT 175 10x3/uL (130-400); RDW 13.5 % (11.5-14.5); WBC 4.8 10x3/uL (4.8-10.8)
[2019-05-02 08:41] LABS: MCV 101.3 fL (80.0-100.0)
[2019-05-02 09:22] VITALS: BP 140/49
[2019-05-02 13:57] VITALS: BP 140/68
--- NOTE | 2019-05-02 14:38 | MORECARE ---
CASE MANAGEMENT DISCHARGE SUMMARY PATIENT: NICKIE FRANCIS UNIT: [id number] ADM DATE: 05/01/19 AGE: 58 : 62 SEX: F ROOM/BED: D.2202 AUTHOR: CHARLENE MANE PHYSICIAN: REFERRING PHYSICIAN: KRISTIN HAMPTON MD DATE OF SERVICE: 05/02/19 Discharge Plan Patient Name: NICKIE FRANCIS Facility: [facility]:[place] : 1960 Planned Disposition: Home Anticipated Discharge Date: Discharge Date: Expected LOS: Initial Reviewer: [email or web address] Initial Review Date: 05/01/2019 Generated: 05/02/19 3:37 pm Patient Name: NICKIE FRANCIS Page 51082 at 1438 All edits/amendments must be made on the electronic document DICTATION DATE: 05/02/197 STAFF CLIMATE SCIENTIST: TARAH 05/02/19 1437 RPT#: [id number] DC DATE: STATUS: ADM IN [facility] [address] [place] [address] END OF REPORT
--- NOTE | 2019-05-02 14:44 | MORECARE ---
CASE MANAGEMENT DISCHARGE SUMMARY PATIENT: NICKIE FRANCIS R UNIT: [id number] ADM DATE: 05/01/19 AGE: 58 : 62 SEX: F ROOM/BED: D.2202 AUTHOR: CHARLENE MANE PHYSICIAN: REFERRING PHYSICIAN: KRISTIN HAMPTON MD DATE OF SERVICE: 05/02/19 Discharge Plan Patient Name: NICKIE FRANCIS [facility] [facility] 1960 Planned Disposition: Home Anticipated Discharge Date: Discharge Date: Expected LOS: Initial Reviewer: [email or web address] Initial Review Date: 05/01/2019 Generated: 05/02/19 3:44 pm DCPIA - Discharge Planning Initial Assessment Updated by [email or web address]: Celestina Linda on 05/02/19 2:40 pm * Is the patient Alert and Oriented? Yes * PCP NO PCP * [facility] [address] * Preadmission Environment Home Alone * ADLs Independent * List name and contact numbers for known caregivers / representatives who currently or will assist patient after discharge: CLYDE ROSARIO- DTR- [phone] * Verbal permission to speak to the caregivers and representatives has been obtained from the patient. No * Community resources currently utilized None * Please name any agencies selected above. N/A * Additional services required to return to the preadmission environment? Yes * Can the patient safely return to the preadmission environment? Yes * Has this patient been hospitalized within the prior 30 days at any hospital? Yes Last DP export: 05/02/19 1:38 p Patient Name: NICKIE FRANCIS Page 48022 at 1444 All edits/amendments must be made on the electronic document DICTATION DATE: 05/02/19 1444 TITLE I ASSISTANT: TARAH 05/02/19 1444 RPT#: [id number] DC DATE: STATUS: ADM IN [facility] [address] [place] [address] END OF REPORT
--- NOTE | 2019-05-02 14:57 | MORECARE ---
CASE MANAGEMENT DISCHARGE SUMMARY PATIENT: NICKIE FRANCIS UNIT: [id number] ADM DATE: 05/01/19 AGE: 58 : 62 SEX: F ROOM/BED: D.2202 AUTHOR: ANTONIETTADOC PHYSICIAN: REFERRING PHYSICIAN: KRISTIN HAMPTON MD DATE OF SERVICE: 05/02/19 Discharge Plan Patient Name: NICKIE FRANCIS Facility: [facility]:[place] : 1960 Planned Disposition: Home Anticipated Discharge Date: Discharge Date: Expected LOS: Initial Reviewer: [email or web address] Initial Review Date: 05/01/2019 Generated: 05/02/19 3:56 pm Comments DCP- Discharge Planning Updated by [email or web address]: Celestina Linda on 05/02/19 1:[address] CM TELEPHONED THE PATIENT . SHE SOUNDS LETHARGIC. CM DISCUSSED CARE MANAGEMENT AND MY ROLE. SHE GAVE PERMISSION TO PROCEED W/ INITIAL ASSESSMENT. SHE IS PLANNING ON DISCHARGING BACK TO HOME. SHE STATES HER ADDRESS IS [address] [place] [address]. SHE STATES HER DAUGHTER IS THE RN MILITARY FOR ANY CHANGES. SHE HAS NO PCP. PHARMACY - [facility] [address] STATES SHE WILL HAVE SOMEONE TO DRIVE HER HOME BUT NOT HER DAUGHTER. STATES SHE HAD AN ADMISSION AT [facility] I MONTH AGO. SHE IS NOT CERTAIN OF DATE. STATES SHE WAS AT [facility] RECENTLY. SHE HAS RECEIVED 4 DOSES OF MSO4 4 MGM SINCE ADMISSION AND ONE DOSE TORADAL 15 MGM. SHE IS A LITTLE LETHARGIC. CM WILL NEED TO FOLLOW UP WHEN PATIENT IS MORE ALERT. SHE IS ORIENTED. DISCHARGE NEEDS TO BE DETERMINED. STATES SHE DOES NOT FOLLOW W/ ANY MENTAL HEALTH OR MEDICAL SPECIALTY CLINICS. DCPIA - Discharge Planning Initial Assessment Updated by [email or web address]: Celestina Linda on 05/02/19 2:40 pm * Is the patient Alert and Oriented? Yes * PCP NO PCP * Pharmacy [facility] [address] * Preadmission Environment Home Alone * ADLs Independent * List name and contact numbers for known caregivers / representatives who currently or will assist patient after discharge: CLYDE PONCE- DTR- [phone] * Verbal permission to speak to the caregivers and representatives has been obtained from the patient. No * Community resources currently utilized None * Please name any agencies selected above. N/A * Additional services required to return to the preadmission environment? Yes * Can the patient safely return to the preadmission environment? Yes * Has this patient been hospitalized within the prior 30 days at any hospital? Yes Last DP export: 05/02/19 1:44 p Patient Name: NICKIE FRANCIS Page [phone] at 1457 All edits/amendments must be made on the electronic document DICTATION DATE: 05/02/196 SENIOR ORACLE DATABASE ADMINISTRATOR: DM 05/02/19 1456 RPT#: [id number] DC DATE: STATUS: ADM IN [facility] [address] [place] [address] END OF REPORT
[2019-05-02 16:42] VITALS: BP 150/72
[2019-05-02 20:00] VITALS: BP 139/60
--- NOTE | 2019-05-02 20:20 | NUR ---
AWAKE,REQUESTING PAIN MED. DILAUDID 0.5 MG GIVEN PER ORDERS. ABD ABSCESS OPEN AND DRAINING PURELENT DRAINAGE NOTED. TELFA WITH 4X4 DRSG APPLIED. TOLERATED WELL. IV TO RFA INTACT WITHOUT REDNESS OR EDEMA NOTED. CL IN REACH
[2019-05-03] VITALS: BP 148/62
--- NOTE | 2019-05-03 01:47 | NUR ---
I have reviewed this patient and I concur with the Shift Assessment completed by the Licensed Practical Nurse today this shift.
[2019-05-03 04:00] VITALS: BP 156/69
[2019-05-03 04:33] LABS: BASOPHILS 0.2 % (0-2); EOSINOPHILS 1.7 % (0-7); HEMATOCRIT 36.5 % (36.0-48.0); HEMOGLOBIN 11.7 g/dL (12-16); IMMATURE GRANULOCYTES 0.2 % (0-5); LYMPHOCYTES 41.7 % (15-50); MCH 32.6 pg (26.0-34.0); MCHC 32.1 g/dL (31.0-37.0); MCV 101.7 fL (80.0-100.0); MEAN PLATELET VOLUME 9.5 fL (7.4-10.4); NEUTROPHILS 49.2 % (40-80); PLATELET COUNT 162 10x3/uL (130-400); RBC 3.59 10x6/uL (4.00-5.40); RDW 13.2 % (11.5-14.5); WBC 4.6 10x3/uL (4.8-10.8)
[2019-05-03 05:08] LABS: CALC OSMOLALITY 279 mosm/kg (275-300); CARBON DIOXIDE 23.2 mmol/L (21.0-32.0); CHLORIDE - SERUM 106 mmol/L (98-107); CREATININE - SERUM 0.7 mg/dL (0.6-1.3); GLUCOSE 94 mg/dL (74-106); MAGNESIUM - SERUM 2.6 mg/dL (1.8-2.4); PHOSPHOROUS 3.9 mg/dL (2.5-4.9); POTASSIUM - SERUM 4.7 mmol/L (3.5-5.1); SODIUM 138 mmol/L (136-145); UREA NITROGEN 25 mg/dL (7-18); eGFR NON AFRICAN AMERICAN > 90 mL/min (90-120)
[2019-05-03 08:55] VITALS: BP 151/80
[2019-05-03 10:37] VITALS: Ht 147.3 cm; Wt 56.7 kg
[2019-05-03 10:54] VITALS: BP 181/70
--- NOTE | 2019-05-03 10:55 | NUR ---
RETURN TO FLOOR AT THIS TIME FROM SURGERY SUITE EASILY TO AROUSED WHEN NAME IS CALLED. RESP EVEN AND UNLABORED WITH NO DISTRESS NOTED. DRESSING CLEAN, DRY AND INTACT. CHECKED ON OFTEN. C/L IN REACH AT BEDSIDE.
--- NOTE | 2019-05-03 16:58 | NUR ---
I have reviewed this patient and I concur with the Shift Assessment completed by the Licensed Practical Nurse today this shift.
--- NOTE | 2019-05-03 20:00 | NUR ---
A&O X 4, REPORTS PAIN 8/10 TO ABDOMEN. AMBULATES INDEPENDENTLY. DRESSING TO RIGHT SIDE OF ABDOMEN C/D/I. DRESSING TO LEFT SIDE OF ABDOMEN APPEARS TO HAVE BLOODY DRAINAGE. DRESSING NOT SATURATED, DRAINAGE MARKED WITH PEN, WILL REASSESS. SANDWICH TRAY AND WHITE MILK GIVEN PER REQUEST. PT TOLERATING WELL. NO FURTHER NEEDS AT THIS TIME.
[2019-05-03 20:29] VITALS: BP 143/55
--- NOTE | 2019-05-03 22:21 | NUR ---
I have reviewed this patient and I concur with the Shift Assessment completed by the Licensed Practical Nurse today this shift.
[2019-05-04 00:25] VITALS: BP 133/64
[2019-05-04 05:48] VITALS: BP 143/54
--- NOTE | 2019-05-04 07:44 | NUR ---
REC'D IN BED WITH EYES CLOSED EASILY TO AROUSE WHEN NAME IS CALLED. RESP EVEN AND UNLABORED WITH NO DISTRESS NOTED. CAN EXPRESS NEEDS AND WANTS. NO C/O VOICED OF YET. DRESSING NOTED TO RAMA SIDE OF ABD. ASSESSMENT COMPLETED. C/L IN REACH AT BEDSIDE.
[2019-05-04] MEDS ORDERED: DOXYCYCLINE HY100 M2 PO (08:17)
[2019-05-04] MEDS ORDERED: LEVOFLOXACIN500 MG PO (08:17)
[2019-05-04] MEDS ORDERED: ZOFRAN4 MG PO (08:18)
[2019-05-04 08:36] LABS: CALC OSMOLALITY 274 mosm/kg (275-300); CALCIUM 8.3 mg/dL (8.5-10.1); CARBON DIOXIDE 18.5 mmol/L (21.0-32.0); CHLORIDE - SERUM 106 mmol/L (98-107); CREATININE - SERUM 0.8 mg/dL (0.6-1.3); GLUCOSE 136 mg/dL (74-106); POTASSIUM - SERUM 4.3 mmol/L (3.5-5.1); SODIUM 135 mmol/L (136-145); UREA NITROGEN 20 mg/dL (7-18); VANCOMYCIN - TROUGH 9.5 ug/mL (10.0-20.0); eGFR NON AFRICAN AMERICAN 78 mL/min (90-120)
[2019-05-04 08:46] VITALS: BP 145/79
[2019-05-04] MEDS ORDERED: HYDROCODON-ACE1 EA10 PO (08:59)
[2019-05-04 09:43] LABS: HEMATOCRIT 32.9 % (36.0-48.0); HEMOGLOBIN 11.1 g/dL (12-16); MCH 32.6 pg (26.0-34.0); MCHC 33.7 g/dL (31.0-37.0); MEAN PLATELET VOLUME 8.3 fL (7.4-10.4); NEUTROPHILS 45.5 % (40-80); PLATELET COUNT 166 10x3/uL (130-400); RBC 3.41 10x6/uL (4.00-5.40); RDW 12.4 % (11.5-14.5); WBC 3.8 10x3/uL (4.8-10.8)
[2019-05-04 09:45] LABS: MCV 96.5 fL (80.0-100.0)
--- NOTE | 2019-05-04 10:36 | MORECARE ---
CASE MANAGEMENT DISCHARGE SUMMARY PATIENT: NICKIE FRANCIS UNIT: [id number] ADM DATE: 05/01/19 AGE: 58 : 62 SEX: F ROOM/BED: D.2202 AUTHOR: CHARLENE MANE PHYSICIAN: REFERRING PHYSICIAN: KRISTIN HAMPTON MD DATE OF SERVICE: 05/04/19 Discharge Plan Patient Name: NICKIE FRANCIS Facility: [facility]:[place] : 1960 Planned Disposition: Home Anticipated Discharge Date: Discharge Date: Expected LOS: Initial Reviewer: [email or web address] Initial Review Date: 05/01/2019 Generated: 05/04/19 11:35 am Comments DCP- Discharge Planning Updated by [email or web address]: Liz Mario on 05/04/19 9:[address] SPOKE WITH PATIENT ABOUT REHAB INFORMATION SHE DID NOT WANT ANY OF THEY INFORMATION SHE SAID SHE KNOWS/IS FINE. THE NURSE WILL TEACH DRESSING CHANGE BECAUSE SHE IS UNINSURED AT THIS TIME. I DID HAVE ELISABETH IN THE [facility] OFFICE CALL HER TO ANSWER HER QUESTIONS. CM TO FOLLOW AND ASSIST NEEDED DCP- Discharge Planning Updated by [email or web address]: Celestina Linda on 05/02/19 1:[address] CM TELEPHONED THE PATIENT . SHE SOUNDS LETHARGIC. CM DISCUSSED CARE MANAGEMENT AND MY ROLE. SHE GAVE PERMISSION TO PROCEED W/ INITIAL ASSESSMENT. SHE IS PLANNING ON DISCHARGING BACK TO HOME. SHE STATES HER ADDRESS IS [address] [place] [address]. SHE STATES HER DAUGHTER IS THE CLEANER AND PRESSER FOR ANY CHANGES. SHE HAS NO PCP. PHARMACY - [facility] [address] STATES SHE WILL HAVE SOMEONE TO DRIVE HER HOME BUT NOT HER DAUGHTER. STATES SHE HAD AN ADMISSION AT [facility] I MONTH AGO. SHE IS NOT CERTAIN OF DATE. STATES SHE WAS AT [facility] RECENTLY. SHE HAS RECEIVED 4 DOSES OF MSO4 4 MGM SINCE ADMISSION AND ONE DOSE TORADAL 15 MGM. SHE IS A LITTLE LETHARGIC. CM WILL NEED TO FOLLOW UP WHEN PATIENT IS MORE ALERT. SHE IS ORIENTED. DISCHARGE NEEDS TO BE DETERMINED. STATES SHE DOES NOT FOLLOW W/ ANY MENTAL HEALTH OR MEDICAL SPECIALTY CLINICS. DCPIA - Discharge Planning Initial Assessment Updated by [email or web address]: Celestina Linda on 05/02/19 2:40 pm * Is the patient Alert and Oriented? Yes * PCP NO PCP * [facility] [address] * Preadmission Environment Home Alone * ADLs Independent * List name and contact numbers for known caregivers / representatives who currently or will assist patient after discharge: CLYDE PONCE- DTR- [phone] * Verbal permission to speak to the caregivers and representatives has been obtained from the patient. No * Community resources currently utilized None * Please name any agencies selected above. N/A * Additional services required to return to the preadmission environment? Yes * Can the patient safely return to the preadmission environment? Yes * Has this patient been hospitalized within the prior 30 days at any hospital? Yes Last DP export: 05/02/19 1:57 p Patient Name: NICKIE FRANCIS Page [phone] at 1036 All edits/amendments must be made on the electronic document DICTATION DATE: 05/04/19 1035 PEDIATRIC SOCIAL WORKER: TARAH 05/04/19 1035 RPT#: [id number] DC DATE: STATUS: ADM IN [facility] [address] [place] [address] END OF REPORT
--- NOTE | 2019-05-04 11:28 | NUR ---
DRESSING CHANGED AT THIS TIME AND TEACHING DONE. PT VOICES UNDERSTANDING OF DRESSING CHANGE AND THIS NURSE INFORMED PT THAT WE HAVE SUPPLIES AT NURSING DESK FOR HER UPON DC.
--- NOTE | 2019-05-04 13:12 | MORECARE ---
CASE MANAGEMENT DISCHARGE SUMMARY PATIENT: NICKIE FRANCIS UNIT: [id number] ADM DATE: 05/01/19 AGE: 58 : 62 SEX: F ROOM/BED: D.2202 AUTHOR: ANTONIETTADOC PHYSICIAN: REFERRING PHYSICIAN: KRISTIN HAMPTON MD DATE OF SERVICE: 05/04/19 Discharge Plan Patient Name: NICKIE FRANCIS Facility: [facility]:[place] : 1960 Planned Disposition: Home Anticipated Discharge Date: Discharge Date: 05/04/2019 Expected LOS: 0 Initial Reviewer: [email or web address] Initial Review Date: 05/01/2019 Generated: 05/04/19 2:12 pm Comments DCP- Discharge Planning Updated by [email or web address]: Liz Mario on 05/04/19 9:[address] SPOKE WITH PATIENT ABOUT REHAB INFORMATION SHE DID NOT WANT ANY OF THEY INFORMATION SHE SAID SHE KNOWS/IS FINE. THE NURSE WILL TEACH DRESSING CHANGE BECAUSE SHE IS UNINSURED AT THIS TIME. I DID HAVE ELISABETH IN THE [facility] OFFICE CALL HER TO ANSWER HER QUESTIONS. CM TO FOLLOW AND ASSIST NEEDED DCP- Discharge Planning Updated by [email or web address]: Celestina Linda on 05/02/19 1:[address] CM TELEPHONED THE PATIENT . SHE SOUNDS LETHARGIC. CM DISCUSSED CARE MANAGEMENT AND MY ROLE. SHE GAVE PERMISSION TO PROCEED W/ INITIAL ASSESSMENT. SHE IS PLANNING ON DISCHARGING BACK TO HOME. SHE STATES HER ADDRESS IS [address] [place] [address] [place] [address]. SHE STATES HER DAUGHTER IS THE DINKEY PRESS OPERATOR FOR ANY CHANGES. SHE HAS NO PCP. PHARMACY - [facility] [address] STATES SHE WILL HAVE SOMEONE TO DRIVE HER HOME BUT NOT HER DAUGHTER. STATES SHE HAD AN ADMISSION AT [facility] I MONTH AGO. SHE IS NOT CERTAIN OF DATE. STATES SHE WAS AT [facility] RECENTLY. SHE HAS RECEIVED 4 DOSES OF MSO4 4 MGM SINCE ADMISSION AND ONE DOSE TORADAL 15 MGM. SHE IS A LITTLE LETHARGIC. CM WILL NEED TO FOLLOW UP WHEN PATIENT IS MORE ALERT. SHE IS ORIENTED. DISCHARGE NEEDS TO BE DETERMINED. STATES SHE DOES NOT FOLLOW W/ ANY MENTAL HEALTH OR MEDICAL SPECIALTY CLINICS. DCPIA - Discharge Planning Initial Assessment Updated by [email or web address]: Celestina Linda on 05/02/19 2:40 pm * Is the patient Alert and Oriented? Yes * PCP NO PCP * Pharmacy [facility] [address] * Preadmission Environment Home Alone * ADLs Independent * List name and contact numbers for known caregivers / representatives who currently or will assist patient after discharge: CLYDE PONCE- DTR- [phone] * Verbal permission to speak to the caregivers and representatives has been obtained from the patient. No * Community resources currently utilized None * Please name any agencies selected above. N/A * Additional services required to return to the preadmission environment? Yes * Can the patient safely return to the preadmission environment? Yes * Has this patient been hospitalized within the prior 30 days at any hospital? Yes Last DP export: 05/04/19 9:36 a Patient Name: NICKIE FRANCIS Page 23840 at 1312 All edits/amendments must be made on the electronic document DICTATION DATE: 05/04/19 1312 FIREARMS SPECIALIST: TARAH 05/04/19 1312 RPT#: [id number] DC DATE:05/04/19 STATUS: DIS IN [facility] [address] [place] [address] END OF REPORT
== END 2019-05-04 12:27 | disposition home or self-care (01) | DRG 571 ==
LOC: D.ER 19:54 → D.MS 21:45
PROVIDERS: Emergency Medicine; Surgery; ADMIT Emergency Medicine; ATTEND Emergency Medicine
PROC: 0JB80ZZ Excision of Abdomen Subcutaneous Tissue and Fascia, Open Approach (ICD-10-PCS; principal; 2019-05-03 09:30)
DX: L03.311 Cellulitis of abdominal wall (principal); N39.0 Urinary tract infection, site not specified; F17.203 Nicotine dependence unspecified, with withdrawal; C95.90 Leukemia, unspecified not having achieved remission; N17.9 Acute kidney failure, unspecified; L02.211 Cutaneous abscess of abdominal wall; J44.9 Chronic obstructive pulmonary disease, unspecified; F19.10 Other psychoactive substance abuse, uncomplicated; F10.10 Alcohol abuse, uncomplicated; D46.9 Myelodysplastic syndrome, unspecified; D89.9 Disorder involving the immune mechanism, unspecified; B96.20 Unspecified Escherichia coli [E. coli] as the cause of diseases classified elsewhere; D70.9 Neutropenia, unspecified